=== PATIENT | female | born 1995 | race Caucasian/White ===

== ENCOUNTER 2020-11-17 01:53 | Day surgery (SDC) | payer BC, SELFPAY ==
[2020-11-11 12:45] VITALS: BMI 36.1
[2020-11-17] VITALS (9 sets, daily range): BP systolic 102–141; BP diastolic 44–90; PULSE 61–94; RESP 14–16; TEMP 36.2–36.8; O2SAT 99–100; BMI 42.0
--- NOTE | 2020-11-17 08:04 | WPDANESEPPF ---
Anes - Initial Pre Proc Eval Procedure: Operation Date: 11/17/20 12:00 Proposed Procedures p Laparoscopic Bilateral Salpingectomy - Loraine Moraes MD Date/Time: 11/17/20 08:04 Surgeon: Loraine Moraes MD Pre Op Diagnosis: desires sterilization Patient Data Age: 25 Gender: F Height: 1.63 m Weight: 95.5 kg Allergies Allergy/AdvReac Type Severity Reaction Status Date / Time No Known Allergies Allergy Verified 11/17/20 10:08 Home Medications Medication Instructions Recorded Confirmed Type escitalopram oxalate 10 mg tablet 10 mg PO DAILY #30 tablet 08/20/20 11/17/20 Rx hydroxyzine pamoate 25 mg PO TID PRN 11/11/20 11/11/20 History Patient hx anesthesia problems: none Family hx anesthesia problems: none [facility] Past Medical History Medical History (Updated 11/17/20 @ 08:05 by Davon Zapien DO) Anxiety BMI 35.0-35.9,adult Surgical History Surgical History (Updated 11/17/20 @ 08:05 by Davon Zapien DO) History of appendectomy Family History Family History Father Diabetes mellitus Hypertension Mother Hypertension Social History Social History Smoking status: Never smoker Alcohol intake: never Living arrangements: with family Spiritual care concerns: No Anes - Eval Final PreProcedure Day of Procedure 11/17/20 08:04 Patient weight: obese Heart: regular rate and rhythm Lungs: clear to auscultation and normal air movement Airway: Mallampati scale class II Neurological: alert and oriented Last oral intake: >/= 8 hours ASA classification: II Emergent: no Anesthetic plan: proceed Anesthesia type and monitoring: general ETT and standard monitoring Informed Consent: The patient's anesthetic plan and its attendant risks and benefits were discussed with the patient/family/POA. Questions were solicited and answers provided to the satisfaction of the patient/family/POA.
[2020-11-17] MEDS: LACTATED RINGERS 1,000 ML 30 ML IV CONT ×2 (10:20→13:10)
[2020-11-17] MEDS: ACETAMINOPHEN 500 MG TABLET 1000 MG PO (10:28)
[2020-11-17] MEDS: KETOROLAC 15 MG/ML VIAL (*BKC) IV PUSH (10:28)
--- NOTE | 2020-11-17 11:58 | WPDHPUPDATE1 ---
History and Physical Update Update Date/Time: 11/17/20 11:58 History and Physical has been reviewed, including an updated exam of the patient. There are NO changes in the patient's condition. Risks, benefits, and alternatives have been discussed and questions answered. Patient agrees to proceed with procedure.
--- NOTE | 2020-11-17 12:37 | W.PM.PROC2 ---
Procedure Note - Detailed Date of Procedure 11/17/20 Pre-op Diagnosis desires sterilization Post-op Diagnosis same Procedure Performed Laparoscopic bilateral salpingectomy Surgeon Loraine Moraes MD Anesthesia general Indications Unwanted fertility Findings Normal pelvic anatomy Description of Procedure The patient was taken the operating room. She was prepped and draped in the dorsal lithotomy position after induction of general anesthesia. A 5 mm skin incision was made in the left upper quadrant of the abdominal skin. A 5 mm trocar was inserted the intra-abdominal cavity under direct visualization of the scope. Pneumoperitoneum was achieved. A 5 mm trocar was inserted in the left lower quadrant identical fashion. A 5 mm infraumbilical trocar was inserted in identical fashion as well. The bilateral fallopian tubes were removed. This was done by using a LigaSure cautery. The mesosalpinx adjacent to the tube was cauterized transected with LigaSure. This was initiated in the area the ovary and in a stepwise fashion moved medially to the area of the cornu of the uterus. Once there the fallopian tube was cauterized and transected. This was done in identical fashion on each side. The fallopian tubes were taken out through the left lower quadrant trocar site. The pneumoperitoneum was reduced. The trocars removed. The skin was closed with subcuticular 4 Monocryl and covered with Dermabond. She was taken to cover stable condition. Sponge lap and needle counts were correct x2. Estimated Blood Loss 5 Drains No Packing No Pathology yes Complications No immediate complications Condition stable Disposition PACU
[2020-11-17] MEDS: fentaNYL CITRATE INJ (*CRX) 100 MCG/2 ML VIAL 25 MCG IV PUSH ×2 (13:07→13:10)
[2020-11-17] MEDS: oxyCODONE HCL (*CRX) 5 MG TAB IR PO (14:12)
== END 2020-11-17 14:38 | disposition home or self-care (01) ==
PROVIDERS: PCP Family Medicine; Visit Provider Obstetrics & Gynecology
PROC: (CPT 49320; principal; 2020-11-17 12:00)
DX: Z30.2 Encounter for sterilization (principal); N83.8 Other noninflammatory disorders of ovary, fallopian tube and broad ligament; F41.9 Anxiety disorder, unspecified; E66.01 Morbid (severe) obesity due to excess calories; Z68.41 Body mass index [BMI] 40.0-44.9, adult
CPT/HCPCS: 58661; 88302; 88312; A9270; J1100; J1885; J2250; J2405; J2704; J2710; J3010; J7030; J7120

== ENCOUNTER 2021-05-23 17:54 | Emergency (ER) | payer BC, SELFPAY ==
[2021-05-23 18:05] VITALS: BP 101/52; PULSE 127; RESP 20; TEMP 36.4; O2SAT 100
--- NOTE | 2021-05-23 18:19 | ED.NAVMDI ---
HPI - Nausea/Vomiting/Diarrhea General Chief complaint: Nausea/Vomiting/Diarrhea Stated complaint: nausea aches chills Time Seen by Provider: 05/23/21 18:33 Source: patient and RN notes reviewed Mode of arrival: ambulatory Limitations: no limitations History of Present Illness HPI Narrative: 26-year-old female presents concern for nausea, vomiting, chills, hot flashes, feeling lightheaded. She denies fever. Reports body aches. Reports symptoms started today. Reports her daughter had similar symptoms last week. She denies cough, nasal congestion, rhinorrhea. MD elicited complaint: nausea and vomiting Related Data Home Medications Medication Instructions Recorded Confirmed hydroxyzine pamoate 25 mg PO TID PRN 11/11/20 05/23/21 Allergies Allergy/AdvReac Type Severity Reaction Status Date / Time No Known Allergies Allergy Verified 11/17/20 10:08 Review of Systems Review of Systems: CONSTITUTIONAL: Reports malaise, chills, sweats ENT: Denies rhinorrhea, congestion, sinus pain, otalgia or sore throat. CARDIOVASCULAR: Denies chest pain, palpitations, or edema. RESPIRATORY: Denies cough or dyspnea. GASTROINTESTINAL: Denies abdominal pain, diarrhea, bloody, or mucous stools. Reports nausea, vomiting, GENITOURINARY: Denies dysuria or hematuria. MUSCULOSKELETAL: Reports myalgia. NEUROLOGIC: Denies headache. All systems reviewed & are unremarkable except as noted in HPI and below PMFSH Past Medical History Medical History (Updated 05/23/21 @ 18:41 by Deborah Mead NP) Anxiety BMI 35.0-35.9,adult Surgical History Surgical History (Updated 11/17/20 @ 08:05 by Davon Zapien DO) History of appendectomy Family History Family History Father Diabetes mellitus Hypertension Mother Hypertension Social History Social History Smoking status: Never smoker Alcohol intake: never Spiritual care concerns: No Comments At time of signature, agree with nursing past medical, surgical, social and family history. There is no relevant family history pertinent to the presenting complaint Exam Narrative: GENERAL: Well-appearing, well-nourished, and in no acute distress. HEAD: Normocephalic, atraumatic. EYES: PERRLA, conjunctivae clear, and EOMI. ENT: Nares clear, turbinates pink, no rhinorrhea or epistaxis. Mucous membranes moist. Oropharynx without edema, erythema, or lesions. Tonsils not enlarged and without exudate. NECK: Supple. No lymphadenopathy CHEST: Speaks in full sentences. No respiratory distress. HEART: Regular rate and rhythm. SKIN: Warm, dry, no rash. NEURO: Alert and oriented x3. PSYCH: Normal mood and affect Course Course Emergency Course: Patient is aware of diagnosis, understands and agrees to treatment plan. Anticipatory guidance given. Patient agrees to follow-up as directed and is aware of reasons to seek care at the emergency department. Portions of this record may have been created with voice recognition software Level of Care: Express Care Visit Vital Signs Vital signs: Vital Signs Temperature 97.5 F L 05/23/21 18:05 Pulse Rate 127 H 05/23/21 18:05 Respiratory Rate 20 05/23/21 18:05 Blood Pressure 101/52 L 05/23/21 18:05 Pulse Oximetry 100 05/23/21 18:05 Temperature 97.5 F L 05/23/21 18:05 Pulse Rate 127 H 05/23/21 18:05 Respiratory Rate 20 05/23/21 18:05 Blood Pressure 101/52 L 05/23/21 18:05 Pulse Oximetry 100 05/23/21 18:05 Reviewed. MDM - Nausea/Vomiting/Diarrhea MDM Narrative Medical decision making narrative: Differential diagnosis considered: Lewis virus, strep pharyngitis, allergic rhinitis, upper respiratory tract infection, sinusitis, rhinosinusitis, nasopharyngitis. viral pharyngitis, otitis media, otitis externa, pneumonia, bronchitis, viral cough syndrome, viral syndrome, and influenza. Exam findings show no acute con
[2021-05-23] MEDS: ONDANSETRON HCL ODT 4 MG TABLET PO (18:20)
== END 2021-05-23 18:52 | disposition home or self-care (01) ==
PROVIDERS: Emergency Provider Nurse Practitioner; PCP Family Medicine
DX: J02.0 Streptococcal pharyngitis (principal); Z20.822 Contact with and (suspected) exposure to COVID-19; F41.9 Anxiety disorder, unspecified
CPT/HCPCS: 87426; 87804; 87880; 99213; A9270; C9803; G0463

== ENCOUNTER 2021-06-25 12:48 | Emergency (ER) | payer BC, SELFPAY ==
--- NOTE | ~2021-06-25 | XR_ITS ---
EXAMINATION: XR chest 2V DATE: 06/25/2021 14:11 INDICATION: Shortness of breath, cough and fatigue TECHNIQUE: PA and lateral views of the chest were obtained. COMPARISON: None FINDINGS: The lungs are clear with no focal airspace opacities, pulmonary edema, pleural effusion or pneumothor ax. The cardiomediastinal silhouette is normal. Mild anterior wedging of a midthoracic vertebral body . IMPRESSION: 1. No acute cardiopulmonary disease. Reviewed, dictated and finalized at location A.
[2021-06-25 12:53] VITALS: BP 134/75; PULSE 95; RESP 16; TEMP 36.7; O2SAT 99
--- NOTE | 2021-06-25 13:54 | ED.URI ---
HPI - URI/Sore Throat General Chief Complaint: Upper Respiratory Infection Stated Complaint: cough fatigue Time Seen by Provider: 06/25/21 13:55 Source: patient, RN notes reviewed and old records reviewed Mode of arrival: ambulatory Limitations: no limitations History of Present Illness HPI Narrative: 26-year-old female who presents to [facility] with complaints of cough and fatigue with shortness of breath with exertion for the past 4 days. Patient states that daughter has pneumonia and she i concerned she may have it also. Patient states that she does have some yellow phlegm, denies any known fevers,chills or sweats and states he has not noted any wheezing. Patient has clear lumg sounds with no tachypnea or accessory muscle use, SAO2 99% on room air. Has taken OTC medications for her symptoms. MD elicited complaint: cough and other (Fatigue) Related Data Home Medications Medication Instructions Recorded Confirmed progesterone micronized 100 mg PO DAILY 06/25/21 06/25/21 Allergies Allergy/AdvReac Type Severity Reaction Status Date / Time No Known Allergies Allergy Verified 06/25/21 13:08 Review of Systems Review of Systems: CONSTITUTIONAL: Denies fever, chills, or sweats. EYES: Denies visual changes, redness, or discharge. ENT: Positive for rhinorrhea, congestion,no sore throat, or otalgia. CARDIOVASCULAR: Denies chest pain, palpitations, or edema. RESPIRATORY:Positive for cough and some dyspnea with exertion, denies any wheezing. GASTROINTESTINAL: Denies abdominal pain, nausea, vomiting, or diarrhea. GENITOURINARY: Denies dysuria or hematuria. SKIN: Denies rash or itching. MUSCULOSKELETAL: Denies back pain, joint pain, or myalgia. NEUROLOGIC: Denies headache, numbness, or weakness. PSYCHIATRIC: Positive for history of anxiety or depression. All systems reviewed & are unremarkable except as noted in HPI and below PMFSH Past Medical History Medical History Anxiety BMI 35.0-35.9,adult Bronchitis Fracture of elbow Surgical History Surgical History History of appendectomy History of unilateral salpingectomy Family History Family History Father Diabetes mellitus Hypertension Mother Hypertension Social History Social History (Updated 06/26/21 @ 12:25 by Christi Del Angel NP) Smoking status: Never smoker Alcohol intake: never Substance use: never Living arrangements: with family Gender identity (if verbalized by the patient): Female Spiritual care concerns: No Comments At time of signature, agree with nursing past medical, surgical, social and family history. There is no relevant family history pertinent to the presenting complaint Exam Narrative: GENERAL: Well-appearing, well-nourished obese, and in no acute distress. HEAD: Normocephalic, atraumatic. EYES: PERRLA and EOMI. ENT: Nares with minimal redness clear rhinorrhea no epistaxis. Mucous membranes moist.TM's normal with good light reflex, throat pink with no lesions or exudates or tonsil swelling. NECK: Supple.no lymphadenopathy CHEST: Clear to auscultation. No respiratory distress.no tachypnea or any accessory muscle use, SAO2 99% on room air, denies any pain with deep breathing. HEART: Regular rate and rhythm. No murmur heard. Normal peripheral pulses. ABDOMEN: Soft, nontender, nondistended, normal active bowel sounds. EXTREMITIES: Normal range of motion. No edema. SKIN: Warm, dry, no rash. NEURO: No focal deficits. Alert and oriented x3. Course Course Level of Care: Express Care Visit Vital Signs Vital signs: Vital Signs Temperature 36.7 C 06/25/21 12:53 Pulse Rate 95 06/25/21 12:53 Respiratory Rate 16 06/25/21 12:53 Blood Pressure 134/75 06/25/21 12:53 Pulse Oximetry 99 06/25/21 12:53 Temperature 36.7 C 06/25/21 12:53 Pulse Rate 95
== END 2021-06-25 14:30 | disposition home or self-care (01) ==
PROVIDERS: Emergency Provider Registered Nurse; PCP Family Medicine
DX: J06.9 Acute upper respiratory infection, unspecified (principal); F41.9 Anxiety disorder, unspecified
CPT/HCPCS: 71046; 99213; G0463